=== PATIENT | male | born 1970 | race African-American/Black ===

== ENCOUNTER 2021-02-22 23:45 | Observation (INO) | payer OTHER ==
[~2021-02-22] VITALS: Ht 193 cm; Wt 173.2 kg
[2021-02-23 00:46] LABS: BASO % 0.3 % (0.0-2.0); EOS % 0.2 % (0-4.0); GRAN # 11.9 (1.4-6.5); GRAN % 81.3 % (42.2-75.2); HEMATOCRIT 43.8 % (42.0-52.0); HEMOGLOBIN 14.7 g/dl (13.5-18.0); LYMPH # 1.3 (1.2-3.4); LYMPH % 8.6 % (20.0-51.0); MEAN CELL VOLUME 95 fl (80.0-100.0); MEAN CORPUSCULAR HEMOGLOBIN 32 pg (27.0-31.0); MEAN CORPUSCULAR HGB CONC 34 g/dl (33.0-37.0); MEAN PLATELET VOLUME 9.8 fl (7.4-10.4); MONO # 1.1 (0.1-0.6); MONO % 7.4 % (1.7-9.3); PLATELET COUNT 246 K/mm3 (130-400); RED BLOOD COUNT 4.61 M/mm3 (4.20-5.60); REDCELL DISTRIBUTION WIDTH-CV 13.3 % (11.5-14.5)
[2021-02-23 00:49] LABS: ALANINE AMINOTRANSFERASE 199 U/L (0-55); ALBUMIN 3.3 gm/dL (3.5-5.0); ALKALINE PHOSPHATASE 301 U/L (0-750); ANION GAP 14 mmol/L; AST,SGOT 303 U/L (5-34); BILIRUBIN,TOTAL 3.5 mg/dL (0.2-1.2); BLOOD UREA NITROGEN 11 mg/dL (9-21); CALCIUM 9.5 mg/dL (8.4-10.2); CARBON DIOXIDE 24 mEq/L (22-29); CHLORIDE 102 mmol/L (98-107); CREATININE, serum 0.95 mg/dL (0.72-1.25); GLUCOSE 136 mg/dL (70-99); LIPASE 30 U/L (8-78); POTASSIUM 4.2 mmol/L (3.5-4.5); SODIUM 140 mmol/L (136-145); TOTAL PROTEIN 7.7 gm/dL (6.2-8.1)
[2021-02-23 01:10] LABS: TROPONIN-I < 0.010 ng/mL (0.00-0.033)
[2021-02-23 04:23] VITALS: BP 140/95; PULSE 118; TEMP 99.5
[2021-02-23 08:00] VITALS: BP 130/70; PULSE 112; TEMP 98.3
--- NOTE | 2021-02-23 09:33 | NUR ---
The patient's RN notified COLLIN that the patient is wanting to be transferred to the [facility]. COLLIN contacted Marisela with the transfer line at the [facility]. Marisela reports that they do not have surgeons on and would not be able to accomodate the patient. COLLIN notified the patient's RN. COLLIN met with the patient to discuss discharge plan. The patient lives alone in [place]. He reports independence with ADLs and does not have any DME. The patient's PCP is Dr. Steel at the [facility] and he receives his medications from the [facility]. The patient does not have a DPOA-HC and he was not interested in completing one at this time. The patient states that he is not , does not have any children, and his parents are . He states that he has two siblings: Yuli and Edd. He states that he has a "play sister", Vanessa Quick (ph#[phone]), and he has her listed as his person to contact. The patient plans to return home upon discharge. No additional needs at this time.
--- NOTE | 2021-02-23 11:04 | NUR ---
Patient alert and oriented, answers questions appropriately. See assessment. Abdomen soft, non distended, non tender. Bowel sounds active x4 quads. +Flatus. +Bowel movement. Requests diet. No other c/o at this time.
[2021-02-23 11:56] VITALS: BP 132/87; PULSE 106; TEMP 98.5
[2021-02-23] MEDS ORDERED: OPTIVE SENSITI0.4 ML OS (12:01)
[2021-02-23] MEDS ORDERED: VRAYLAR6 MG PO (12:10)
[2021-02-23] MEDS ORDERED: COLACE 100100 MG/CAP PO (12:18)
[2021-02-23] MEDS ORDERED: FOLIC ACID 11 MG/TA1 PO (12:18)
[2021-02-23] MEDS ORDERED: ZESTRIL 10MG10 MG PO (12:19)
[2021-02-23] MEDS ORDERED: PRINIVIL10 MG PO (12:19)
[2021-02-23] MEDS ORDERED: MELATONIN1 MG PO ×2 (12:20→12:22)
[2021-02-23] MEDS ORDERED: NATURE'S BLEND100 M2 PO (12:25)
[2021-02-23] MEDS ORDERED: VALTREX1 GM PO (12:26)
--- NOTE | 2021-02-23 12:50 | NUR ---
Initial visit; Patient thanked Process Owner for stopping although he is too ill to have prayer or visit today. Process Owner will return another time. Process Owner offered God's blessings.
--- NOTE | 2021-02-23 15:19 | NUR ---
No GI provider manager clinical applications for consult today. Will attempt to call consult tomorrow.
--- NOTE | 2021-02-23 15:27 | NUR ---
Patient has c/o several times throughout the day that he is hungry and needs to have food available. Patient has been NPO awaiting ultrasound. Patient has becoming increasingly agitated awaiting tests and diet order. Patient has also asked several times if this hospital stay is being paid for by the [facility]. Updated patient on orders and [facility] work report regarding [facility].
[2021-02-23 16:00] VITALS: BP 137/67; PULSE 102; TEMP 98.1
[2021-02-23 19:50] VITALS: BP 137/81; PULSE 96; TEMP 98.9
[2021-02-24] VITALS (14 sets, daily range): BP systolic 98–135; BP diastolic 49–86; PULSE 79–100; TEMP 97.7–98.5
[2021-02-24 06:49] LABS: BASO # 0.1 (0.0-0.2); BASO % 0.4 % (0.0-2.0); EOS # 0.1 (0.0-0.7); EOS % 1.1 % (0-4.0); GRAN # 8.5 (1.4-6.5); GRAN % 66.1 % (42.2-75.2); HEMATOCRIT 40.6 % (42.0-52.0); HEMOGLOBIN 13.2 g/dl (13.5-18.0); LYMPH # 3.2 (1.2-3.4); LYMPH % 24.6 % (20.0-51.0); MEAN CORPUSCULAR HEMOGLOBIN 33 pg (27.0-31.0); MEAN CORPUSCULAR HGB CONC 33 g/dl (33.0-37.0); MEAN PLATELET VOLUME 9.7 fl (7.4-10.4); MONO # 0.8 (0.1-0.6); MONO % 6.5 % (1.7-9.3); PLATELET COUNT 223 K/mm3 (130-400); RED BLOOD COUNT 4.02 M/mm3 (4.20-5.60); REDCELL DISTRIBUTION WIDTH-CV 13.4 % (11.5-14.5)
[2021-02-24 06:50] LABS: MEAN CELL VOLUME 101 fl (80.0-100.0)
[2021-02-24 07:28] LABS: ALBUMIN 2.8 gm/dL (3.5-5.0); BILIRUBIN,TOTAL 1.2 mg/dL (0.2-1.2); CALCIUM 8.5 mg/dL (8.4-10.2); CREATININE, serum 0.96 mg/dL (0.72-1.25); POTASSIUM 3.8 mmol/L (3.5-4.5); TOTAL PROTEIN 6.1 gm/dL (6.2-8.1)
--- NOTE | 2021-02-24 08:00 | NUR ---
Patient sitting up on edge of bed. Alert and oriented x 3. Assessment complete. Denies pain at this time. IV fluids infusing per orders to left hand IV. Denies further needs at this time.
--- NOTE | 2021-02-24 10:00 | NUR ---
Contacted GI transition rn, per Dr. Bloom, Dr. Worthington is the only provider that does ERCPs and he is out of town at this time. Notified Dr. Chisholm.
--- NOTE | 2021-02-24 19:03 | NUR ---
Patint up from OR at 1620, drowsy but arouses to voice. Lap x4 with bandaids are CDI. Post op VSS and post op fluids infusing per orders. Patient denies further needs at this time. Will report off to shift mechanic.
--- NOTE | 2021-02-24 22:02 | NUR ---
Patient assessed around 2019. Complained of pain to abdomen, rated as a 10. Given PRN [place], and given another one about 45 minutes later per orders. Peripheral IV to left hand INT'd due to tolerating oral intake well. 4 lap sites to abdomen with bandaides CDI. Was on oxygen at 2 L/min via NC, titrated down to 1 L/min via NC. Denies SOB and dyspnea. LS CTA in upper lobes, diminished in lower. Voices no questions, needs, or concerns at this time. Resting in bed with call light within reach.
[2021-02-25 02:54] VITALS: BP 131/79; PULSE 87; TEMP 98.4
--- NOTE | 2021-02-25 05:58 | NUR ---
Patient has voiced no further complaints of pain or discomfort this shift. Resting in bed with call light within reach. Voices no questions, needs, or concerns at this time.
[2021-02-25 07:46] VITALS: BP 140/92; PULSE 95; TEMP 97.9
--- NOTE | 2021-02-25 09:20 | NUR ---
Patient ambulated independently to nurses station, yelling out and demanding medications. Patient directed back to room. As he was walking away, patient yells "shit is about to get real up in here if I don't get my medications."
--- NOTE | 2021-02-25 09:52 | NUR ---
Reviewed medications with patient, patient unsure of name of medications or doses, states he needs the medicine that "keeps the voices away". Reviewed with patient that on Tuesday (9) this nurse reviewed with patient that his Cariprazine is not availabe by in house pharmacy and he would need to have someone bring his medication up, patient acknowledged this conversation and stated his sister brought his medications up on Tuesday. Verified with pharmacy that the medications are not in pharmacy, medications are not in patients own bin or in room either. Patient unsure if his sister actually brought the medications up or not. Patient then asks when surgeon will be here to let him go home. Reviewed with patient that surgeon will be here to see him, and will likely discharge him, but that would be the surgeons decision. Patient then states [facility] [place] [facility] 1500, [facility] could not confirm this, stated he does not have an appointment scheduled for today. Relayed this information to patient, states "that Doctor better get here, or shit is going to get real for him." Prior to leaving room, patient confirmed he does not need anything at this time.
--- NOTE | 2021-02-25 10:02 | NUR ---
Patient ambulates to nurses station, asking when Doctor will be in to see him. Reviewed with patient that Doctor will be in to see him today. Reviewed with patient that provider is aware he is here and will be in to see him. Patient back to room stating "they ain't going to like it when it gets real". Patient sitting in bed on his phone when this nurse exited room.
--- NOTE | 2021-02-25 10:55 | NUR ---
Patient alert and oriented, answers questions appropriately. See assessment. Abdomen soft, non tender, non distended. Bowel sounds active x4 quads. +Flatus. +Bowel movement. Lap sites to abdomen with edges well approximated, no redness or drainage noted. Post op exercises reviewed with patient. No c/o at this time.
[2021-02-25] MEDS ORDERED: NORCO 325 MG-51 TAB PO ×2 (11:05→11:07)
--- NOTE | 2021-02-25 12:44 | NUR ---
Discharge instructions reviewed with patient, verbalized understanding. Discharged via wheelchair to auto/home with family at 1235.
== END 2021-02-25 12:35 | disposition home or self-care (01) ==
LOC: COL.ER 23:45 → SURG 02-23 02:25
PROVIDERS: Physician Assistant; ADMIT Surgery
DX: K80.12 Calculus of gallbladder with acute and chronic cholecystitis without obstruction (principal); K82.A1 Gangrene of gallbladder in cholecystitis; I10 Essential (primary) hypertension; G47.33 Obstructive sleep apnea (adult) (pediatric); F32.9 Major depressive disorder, single episode, unspecified; Z20.822 Contact with and (suspected) exposure to COVID-19; E66.01 Morbid (severe) obesity due to excess calories; Z68.42 Body mass index [BMI] 45.0-49.9, adult; Z79.899 Other long term (current) drug therapy; K80.00 Calculus of gallbladder with acute cholecystitis without obstruction
CPT/HCPCS: G0378; J0690; J1100; J1885; J1956; J2405; J2550; J2704; J2710; J3010; J7030; J7120; Q9967